=== PATIENT | male | born 1995 | race American Indian/Alaskan Native ===

== ENCOUNTER 2017-12-05 07:13 | Emergency (ER) | payer OTHER ==
[2017-12-05 07:35] VITALS: RESP 16; O2SAT 99; BMI 20.4
--- NOTE | 2017-12-05 07:48 | ED PDOC ---
Arrival/HPI - General Chief Complaint: Lower Extremity Problem/Injury Time Seen by Provider: 12/05/17 07:17 Historian: Patient - History of Present Illness Narrative History of Present Illness (Text): 12/05/17 07:46 A 22 year old male, with no significant past medical history, presents to the emergency department complaining of right foot injury. Patient reports yesterday evening he was "playing around" and hit his right foot into a pole. States he was wearing a sneaker at the time and injured his 1st digit big toe, resulting in pain and swelling. Patient denies any bleeding, numbness, ankle/ knee pain, or any other complaints at this time. No PMD Time/Duration: Other (yesterday evening) Symptom Onset: Sudden Symptom Course: Unchanged Past Medical History - Provider Review Nursing Documentation Reviewed: Yes - Infectious Disease Hx of Infectious Diseases: None - Tetanus Immunization Tetanus Immunization: Up to Date - Cardiac Hx Cardiac Disorders: No - Pulmonary Hx Asthma: Yes - Neurological Hx Neurological Disorder: No - HEENT Hx HEENT Disorder: No - Renal Hx Renal Disorder: No - Endocrine/Metabolic Hx Endocrine Disorders: No - Hematological/Oncological Hx Blood Disorders: No - Integumentary Hx Dermatological Disorder: No - Musculoskeletal/Rheumatological Hx Musculoskeletal Disorders: No - Gastrointestinal Hx Gastrointestinal Disorders: No - Genitourinary/Gynecological Hx Genitourinary Disorders: No - Psychiatric Hx Substance Use: No - Past Surgical History Past Surgical History: No Previous - Suicidal Assessment Feels Threatened In Home Enviroment: No Family/Social History - Physician Review Nursing Documentation Reviewed: Yes Family/Social History: No Known Family HX Smoking Status: Never Smoked Hx Alcohol Use: No Hx Substance Use: No Hx Substance Use Treatment: No Allergies/Home Meds Allergies/Adverse Reactions: Allergies No Known Allergies Allergy (Verified 03/21/16 12:04) Review of Systems - Review of Systems Constitutional: absent: Fevers Respiratory: absent: SOB Gastrointestinal: absent: Nausea Musculoskeletal: Other (right foot first toe pain, no ankle or knee or calf pain ). absent: Back Pain, Neck Pain Skin: absent: Rash, Laceration Neurological: absent: Focal Weakness Physical Exam - Physical Exam Narrative Physical Exam (Text): Head: Atraumatic. Normocephalic. Cardiovascular: Regular rate. Regular rhythm. Distal pulses are 2+ and symmetric. Cap refill less than 2 seconds in distal extremities. Pulmonary/Chest: No evidence of respiratory distress. Clear to auscultation bilaterally. No wheezing, rales or rhonchi. Back: No CVA tenderness. Nontender. Extremities: Focal pain and tenderness to right first toe with edema, no nail disruption. No laceration. No midfoot pain. No achilles or calf pain. No ankle pain. No knee pain. NO pain to 2,3,4,or 5 digit. Skin: No laceration. No nail injury. Neurological: Alert, awake, and oriented. Motor and sensory exam intact. Psychiatric: Good eye contact. Normal interaction, affect, and behavior. 12/05/17 08:37 Vital Signs Temp Pulse Resp BP Pulse Ox 12/05/17 07:31 98.6 F 61 16 121/75 99 Medical Decision Making ED Course and Treatment: 12/05/17 07:47 Impression: 22 year old with right 1st digit big toe pain and swelling. Plan: -- Right Foot X-ray -- Tylenol -- Reassess and disposition Progress Notes: Xray by my interpretation reveals right first toe fracture. Pain controlled. Xray findings reviewed with patient. He is NV intact. No other injury noted. Lenny tape and ortho shoe ordered. Patient given crutches. Have advised follow-up with podiatry/orthopedics. 12/05/17 08:39 - RAD Interpretation Radiology Orders: 12/05/17 07:45 FOOT RIGHT GREAT TOE ROUTINE [RAD] Stat - Medication Orders Current Medication Orders: Discontinued Medications Acetaminophen (Tylenol 325mg Tab) 650 mg PO ONCE STA Stop: 12/05/17 07:46 Last Admin: 12/05/17 08:07 Dose: 650 mg MAR Pain/Vitals Document 12/05/17 08:07 RG (Rec: 12/05/17 08:07 [facility] [id number] Pain Reassessment Is This A Pain ReAssessment? Yes Presence of Pain Presence of Pain Yes Location Left, Right or Bilateral Right Pain Location Body Site Foot - Scribe Statement The provider has reviewed the documentation as recorded by the Lino Edgar Provider Scribe Attestation: All medical record entries made by the Scribe were at my direction and personally dictated by me. I have reviewed the chart and agree that the record accurately reflects my personal performance of the history, physical exam, medical decision making, and the department course for this patient. I have also personally directed, reviewed, and agree with the discharge instructions and disposition. Disposition/Present on Arrival - Present on Arrival Any Indicators Present on Arrival: No History of DVT/PE: No History of Uncontrolled Diabetes: No Urinary Catheter: No History of Decub. Ulcer: No History Surgical Site Infection Following: None - Disposition Have Diagnosis and Disposition been Completed?: Yes Diagnosis: Toe fracture, right Disposition: HOME/ ROUTINE Disposition Time: 08:40 Patient Plan: Discharge Condition: GOOD Discharge Instructions (ExitCare): Toe Fracture (DC), How to Use Crutches Additional Instructions: You must follow-up with orthopedic doctor or [facility] system administrator later this week for re- evaluation. Use crutches as directed. Take pain medication as directed. For any numbness, bleeding, persistent or worsening of any symptoms, get rechecked immediately. Prescriptions: Naproxen 250 mg PO BID PRN #10 tablet PRN Reason: Pain, Mild (1-3) Referrals: Navneet Phelan DPM [Staff Provider] - Follow up with primary [facility] [Outside] - Follow up with primary [facility] [Outside] - Follow up with primary Forms: [facility] (Dominican), WORK NOTE
[2017-12-05 08:59] VITALS: BP 124/66; PULSE 68; TEMP 98.5
--- NOTE | 2017-12-05 12:35 | RAD ---
Date of service: 12/05/2017 PROCEDURE: Right Foot Radiographs. HISTORY: right first toe pain COMPARISON: None. FINDINGS: BONES: There is an old fracture deformity of the medial aspect of the base of the 1st distal phalanx. There is a linear nondisplaced fracture of the lateral aspect JOINTS: Normal. SOFT TISSUES: Normal. OTHER FINDINGS: None. IMPRESSION: There is an old fracture deformity of the medial aspect of the base of the 1st distal phalanx. There is a linear nondisplaced fracture of the lateral aspect
== END 2017-12-05 09:00 | disposition home or self-care (01) ==
LOC: ED 07:13
DX: S92.401A Displaced unspecified fracture of right great toe, initial encounter for closed fracture (principal); W22.09XA Striking against other stationary object, initial encounter; Y92.9 Unspecified place or not applicable

== ENCOUNTER 2018-07-15 00:45 | Emergency (ER) | payer OTHER ==
[2018-07-15 00:51] VITALS: BMI 21.1
[2018-07-15 00:58] VITALS: TEMP 98.2; O2SAT 100
[2018-07-15] MEDS ORDERED: Sodium Chloride 0.9% 1,000 ML IV STA (01:36)
--- NOTE | 2018-07-15 02:06 | ED PDOC ---
Arrival/HPI - General Chief Complaint: Abdominal Pain Time Seen by Provider: 07/15/18 00:51 Historian: Patient - History of Present Illness Narrative History of Present Illness (Text): 07/15/18 00:51 Vincent Dean is a 23 year old male, with no significant past medical history, who presents to the emergency department with complaints of right abdominal pain. Patient informs he has been vomiting. Patient's mother has a history of kidney stones. Patient denies fevers, chills, headache, dizziness, chest pain, shortness of breath, dyspnea on exertion, cough, nausea, diarrhea, back pain, neck pain, or any other complaint. Symptom Onset: Sudden Symptom Course: Unchanged Severity Level: 6 Activities at Onset: Light Context: Home Past Medical History - Provider Review Nursing Documentation Reviewed: Yes - Infectious Disease Hx of Infectious Diseases: None - Tetanus Immunization Tetanus Immunization: Up to Date - Cardiac Hx Cardiac Disorders: No - Pulmonary Hx Asthma: Yes - Neurological Hx Neurological Disorder: No - HEENT Hx HEENT Disorder: No - Renal Hx Renal Disorder: No - Endocrine/Metabolic Hx Endocrine Disorders: No - Hematological/Oncological Hx Blood Disorders: No - Integumentary Hx Dermatological Disorder: No - Musculoskeletal/Rheumatological Hx Musculoskeletal Disorders: No - Gastrointestinal Hx Gastrointestinal Disorders: No - Genitourinary/Gynecological Hx Genitourinary Disorders: No - Psychiatric Hx Depression: No Hx Emotional Abuse: No Hx Physical Abuse: No Hx Substance Use: Yes - Past Surgical History Past Surgical History: No Previous - Anesthesia Hx Anesthesia: No Hx Anesthesia Reactions: No Hx Malignant Hyperthermia: No - Suicidal Assessment Feels Threatened In Home Enviroment: No Family/Social History - Physician Review Nursing Documentation Reviewed: Yes Family/Social History: Other (Kidney stones) Smoking Status: Never Smoked Hx Alcohol Use: No Hx Substance Use: Yes Substance used: marijuana Hx Substance Use Treatment: No Allergies/Home Meds Allergies/Adverse Reactions: Allergies No Known Allergies Allergy (Verified 03/21/16 12:04) Review of Systems - Physician Review All systems were reviewed & negative as marked: Yes - Review of Systems Constitutional: absent: Fevers, Night Sweats Respiratory: absent: SOB, Cough Cardiovascular: absent: Chest Pain Gastrointestinal: Abdominal Pain (right side), Vomiting. absent: Diarrhea, Nausea Musculoskeletal: absent: Back Pain, Neck Pain Neurological: absent: Headache, Dizziness Physical Exam - Physical Exam Narrative Physical Exam (Text): 07/15/18 00:51 Gen: VS reviewed, alert, well developed, well nourished, nontoxic, mild distress. ENT: normal pharynx. Eye: EOMI, PERRL. Neck: no JVD, supple, no adenopathy. CV: regular rate, regular rhythm, no rubs, no murmur, no gallops, S1, S2, pulses equal and strong. Pulm: no distress, clear to auscultation, no wheeze, no rhonchi, breath sounds equal, no rales. Abd: soft, nontender, no guarding, no rebound, no rigidity, normal bowel sounds. Ext: no edema. Skin: good color, no rash, no cyanosis. Psych: responds appropriately to questions, normal affect. Neuro: oriented x 3, CN2-12 intact grossly, motor intact, sensation intact. Vital Signs Reviewed: Yes Vital Signs Temp Pulse Resp BP Pulse Ox 07/15/18 00:57 98.2 F 62 18 131/68 100 Temperature: Afebrile Blood Pressure: Normal Pulse: Regular Respiratory Rate: Normal Appearance: Positive for: Well-Appearing, Non-Toxic, Comfortable Pain Distress: None Mental Status: Positive for: Alert and Oriented X 3 Medical Decision Making ED Course and Treatment: 07/15/18 03:22 patient was seen for right flank pain, found to have a kidney stone. renal function normal, no uti, patient is nontoxic and pain is controlled. stable for dc. patient will be given strainer and patient understands to follow up with pcp for further care. - RAD Interpretation Narrative RAD Interpretations (Text): 07/15/18 03:21 CT Abdomen / Pelvis without IV contrast shows: FINDINGS: LUNG BASES: The lung bases appear clear. No pleural effusions are seen. LIVER: Unremarkable. GALLBLADDER AND BILE DUCTS: The gallbladder appears within normal limits. No radioopaque gallstones are seen. No biliary ductal dilatation is evident. PANCREAS: Unremarkable. SPLEEN: Unremarkable. ADRENAL GLANDS: Unremarkable. KIDNEYS, URETERS, AND BLADDER: There is mild right hydronephrosis and hydroureter to the level of L3-L4 where there is an obstructing 3-4 millimeter calculus on series 2, image 45. Bladder is predominantly decompressed and grossly unremarkable. STOMACH AND BOWEL: Unremarkable appearance of the stomach and bowel. No evidence of bowel obstruction. No evidence suggesting enteritis or colitis. APPENDIX: No evidence of acute appendicitis on CT examination. PERITONEUM: No free fluid. No free air. LYMPH NODES: No lymphadenopathy is evident. REPRODUCTIVE: Unremarkable as visualized. VASCULATURE: No evidence of abdominal aortic aneurysm. BONES: No aggressive appearing osseous lesion. No acute osseous pathology evident. IMPRESSION: 1. There is mild right hydronephrosis and hydroureter to the level of L3-L4 where there is an obstructing 3-4 millimeter calculus on series 2, image 45. 2. Bladder is predominantly decompressed and grossly unremarkable. Electronically signed on Jul 15, 2018 3:09:10 AM EST by: Asim Rios M.D., Certified by IRVIN, K, Neuroradiology Radiology Orders: 07/15/18 01:36 ABDOMEN & PELVIS [ABD & PELVIS W/O PO OR IV CONT] [CT] Stat Jordan Man: Radiologist - Medication Orders Current Medication Orders: Sodium Chloride (Sodium Chloride 0.9%) 1,000 mls @ 999 mls/hr IV .Q1H1M STA Stop: 07/15/18 02:36 Last Admin: 07/15/18 01:41 Dose: 999 mls/hr eMAR Start Stop Document 07/15/18 01:41 AD (Rec: 07/15/18 01:[address] [facility] [id number]-) Intravenous Solution Start Date 07/15/18 Start Time 01:41 Discontinued Medications Ketorolac Tromethamine (Toradol) 30 mg IVP STAT STA Stop: 07/15/18 01:37 Last Admin: 07/15/18 01:41 Dose: 30 mg MAR Pain Assessment Document 07/15/18 01:41 AD (Rec: 07/15/18 01:[address] [facility] [id number]-) Pain Reassessment Is this a pain reassessment? No Location Left, Right or Bilateral Right Description Intensity of Pain at present 8 Pain Behavior Facial Grimacing IVP Administration Document 07/15/18 01:41 AD (Rec: 07/15/18 01:[address] [facility] [id number]-) Charges for Administration # of IVP Administrations 1 - Scribe Statement The provider has reviewed the documentation as recorded by the Scribe Axel Lopez All medical record entries made by the Scribe were at my direction and personall y dictated by me. I have reviewed the chart and agree that the record accurately reflects my personal performance of the history, physical exam, medical decision making, and the department course for this patient. I have also personally directed, reviewed, and agree with the discharge instructions and disposition. Disposition/Present on Arrival - Present on Arrival Any Indicators Present on Arrival: No History of DVT/PE: No History of Uncontrolled Diabetes: No Urinary Catheter: No History of Decub. Ulcer: No History Surgical Site Infection Following: None - Disposition Have Diagnosis and Disposition been Completed?: Yes Diagnosis: Renal colic on right side Disposition: HOME/ ROUTINE Disposition Time: 03:24 Patient Plan: Discharge Patient Problems: Current Active Problems Problem Status Onset Renal colic on right side Acute Condition: STABLE Discharge Instructions (ExitCare): Renal Colic Additional Instructions: there is a 3-4 mm stone on the right side. this stone should pass spontaneously. stay well hydrated (water). return for any problems or concerns especially fever greater than 100.4, uncontrolled pain, persistent vomiting. Prescriptions: Ketorolac Tromethamine [Toradol] 10 mg PO Q6H 5 Days #20 tab Ondansetron [Zofran] 4 mg PO Q8H #12 tab Tamsulosin HCl [Flomax] 0.4 mg PO DAILY 30 Days #30 cap.er.24h Referrals: Janis Herrera MD [Primary Care Provider] - Follow up with primary Forms: [facility] (Malawian), WORK NOTE, SCHOOL NOTE
[2018-07-15 02:09] LABS: BASO # 0.02 K/mm3 (0.0-2.0); BASO % 0.2 % (0.0-3.0); HEMOGLOBIN 13.4 g/dL (14.0-18.0); LYMPH # 0.7 (1.2-3.4); LYMPH % 7.6 % (22.0-35.0); MEAN CELL VOLUME 86.8 fl (80.0-105.0); MEAN CORPUSCULAR HEMOGLOBIN 28.9 pg (25.0-35.0); MEAN CORPUSCULAR HGB CONC 33.3 g/dl (31.0-37.0); MEAN PLATELET VOLUME 10.3 fl (7.0-11.0); MONO # 0.5 (0.1-0.6); MONO % 5.5 % (1.0-6.0); RBC 4.63 10^6/uL (3.5-6.1); RED CELL DISTRIBUTION WIDTH 12.7 % (11.5-14.5); WHITE BLOOD COUNT 9.7 10^3/uL (4.5-11.0)
[2018-07-15 02:12] LABS: ALB/GLOB RATIO 1.3 (1.1-1.8); ALBUMIN 4.6 g/dL (3.0-4.8); ALT/SGPT 13 U/L (7-56); AST/SGOT 32 U/L (17-59); BLOOD UREA NITROGEN 12 mg/dL (7-21); CALCIUM 9.9 mg/dL (8.4-10.5); GFR NON-AFRICAN AMERICAN > 60
[2018-07-15 02:26] LABS: PH,URINE 6.5 (4.7-8.0); URINE BILIRUBIN SMALL (NEGATIVE); URINE BLOOD LARGE (NEGATIVE); URINE GLUCOSE (UA) NEGATIVE (NEGATIVE); URINE LEUKOCYTE ESTERASE NEGATIVE Leu/uL (NEGATIVE); URINE PROTEIN 100 mg/dL (<30 mg/dL); URINE UROBILINOGEN 0.2 E.U./dL (<1 E.U./dL)
[2018-07-15 02:45] LABS: URINE APPEARANCE SL CLOUDY (CLEAR); URINE COLOR YELLOW (YELLOW)
[2018-07-15 02:50] LABS: URINE RBC 25 - 30 /hpf (0-2); URINE WBC 0 - 2 /hpf (0-6)
[2018-07-15 02:51] LABS: URINE BACTERIA FEW /hpf
[2018-07-15 03:56] VITALS: BP 125/75; PULSE 65; RESP 16
--- NOTE | 2018-07-15 11:01 | CT ---
Date of service: 07/15/2018 PROCEDURE: CT Abdomen and Pelvis without intravenous contrast HISTORY: right flank pain, stone COMPARISON: None. TECHNIQUE: Technique. Contrast dose: Radiation dose: Total exam DLP = 299.53 mGy-cm. This CT exam was performed using one or more of the following dose reduction techniques: Automated exposure control, adjustment of the mA and/or kV according to patient size, and/or use of iterative reconstruction technique. FINDINGS: LOWER THORAX: Unremarkable. LIVER: Unremarkable. No gross lesion or ductal dilatation. GALLBLADDER AND BILE DUCTS: Unremarkable. PANCREAS: Unremarkable. No gross lesion or ductal dilatation. SPLEEN: Unremarkable. ADRENALS: Unremarkable. No mass. KIDNEYS AND URETERS: 3 millimeter obstructive calculus in the mid right ureter with mild to moderate right hydroureteronephrosis. VASCULATURE: Unremarkable. No aortic aneurysm. No aortic atherosclerotic calcification or mural plaque present. BOWEL: Unremarkable. No obstruction. No gross mural thickening. APPENDIX: Unremarkable. Normal appendix. PERITONEUM: Unremarkable. No free fluid. No free air. LYMPH NODES: Unremarkable. No enlarged lymph nodes. BLADDER: Unremarkable. REPRODUCTIVE: Unremarkable. BONES: No acute fracture. OTHER FINDINGS: None. IMPRESSION: 3 millimeter obstructive calculus in the mid right ureter with mild to moderate right hydroureteronephrosis.
== END 2018-07-15 03:45 | disposition home or self-care (01) ==
LOC: ED 00:45
DX: N23 Unspecified renal colic (principal)
CPT/HCPCS: 74176; 80053; 81001; 85025; 87086; 96374; 99283; J1885; J7030